=== PATIENT | male | born 1985 | race Caucasian/White ===

== ENCOUNTER 2019-09-20 10:07 | Emergency (ER) | payer OTHER ==
[~2019-09-20] VITALS: Ht 180.3 cm; Wt 90.7 kg
[~2019-09-20 10:07] MED LIST: DESYREL50 MG; SUBOXONE 8 MG-1 EAC3; ZOLOFT100 MG PO
[2019-09-20 10:08] VITALS: BP 137/83
[2019-09-20] MEDS ORDERED: GABAPENTIN800 M1 PO (10:13)
[2019-09-20 11:38] LABS: ABSOLUTE NEUTROPHILS 9.6 thou/uL (1.4-8.2); BASOPHILS 0.2 % (0.0-2.0); HEMOGLOBIN 12.4 gm/dL (14.0-18.0); LYMPHOCYTES 11.6 % (24.0-44.0); MCH 29.8 pg (26.0-34.0); MCHC 33.5 g/dL (28.0-37.0); MCV 88.9 fL (80.0-100.0); MONOCYTES 6.2 % (1.0-8.0); PLATELET COUNT 233 thou/uL (150-400); RBC 4.16 mil/uL (4.50-6.00); RDW 13.3 % (10.5-14.5); WBC 11.7 thou/uL (4.0-11.0)
[2019-09-20 11:44] LABS: CALCIUM 8.5 mg/dL (8.5-10.1); CREATININE 0.8 mg/dL (0.7-1.3); POTASSIUM 3.1 mmol/L (3.5-5.1)
[2019-09-20 11:50] LABS: TOTAL BILIRUBIN 0.4 mg/dL (<0.1-1.0); TOTAL PROTEIN 6.5 g/dL (6.4-8.2)
[2019-09-20] MEDS ORDERED: TAMIFLU75 MG PO (12:10)
[2019-09-20] MEDS ORDERED: TESSALON PERLE100 MG PO (12:10)
[2019-09-20] MEDS ORDERED: MOBIC7.5 MG PO (12:10)
[2019-09-20] MEDS ORDERED: K-DUR 20 MEQ T20 MEQ PO (12:17)
[2019-09-20 12:22] LABS: URINE BILIRUBIN NEGATIVE (Negative); URINE BLOOD NEGATIVE (Negative); URINE CLARITY CLEAR; URINE COLOR YELLOW; URINE GLUCOSE-RANDOM* NEGATIVE (Negative); URINE KETONES NEGATIVE (Negative); URINE LEUKOCYTES-REFLEX NEGATIVE (Negative); URINE NITRITE-REFLEX NEGATIVE (Negative); URINE PROTEIN (DIPSTICK) 1+ (Negative); URINE SPECIFIC GRAVITY >= 1.030 (1.005-1.035)
[2019-09-20 12:30] LABS: AMP/METHAMP Negative (Negative); BARBITURATES Negative (Negative); BENZODIAZEPINES Negative (Negative); COCAINE Negative (Negative); METHADONE Negative (Negative); OPIATES Negative (Negative); PCP Negative (Negative)
[2019-09-20 12:35] LABS: AMORPHOUS URATES Few /LPF (None Seen); BACTERIA-REFLEX 1-9 Few /HPF (None Seen); CASTS None Seen /LPF (None Seen); SQUAMOUS None Seen /LPF (0-3); URINE RBC None Seen /HPF (0-2); URINE WBC-REFLEX None Seen /HPF (0-5)
== END 2019-09-20 12:43 | disposition home or self-care (01) ==
LOC: ER 10:07
PROVIDERS: Physician Assistant
DX: S20.211A Contusion of right front wall of thorax, initial encounter (principal); S80.11XA Contusion of right lower leg, initial encounter; S00.83XA Contusion of other part of head, initial encounter; J10.1 Influenza due to other identified influenza virus with other respiratory manifestations; R56.9 Unspecified convulsions; F32.9 Major depressive disorder, single episode, unspecified; F17.210 Nicotine dependence, cigarettes, uncomplicated; W10.8XXA Fall (on) (from) other stairs and steps, initial encounter; Y92.89 Other specified places as the place of occurrence of the external cause; Y93.89 Activity, other specified; Y99.8 Other external cause status